=== PATIENT | male | born 1970 ===

== ENCOUNTER 2025-03-26 16:07 | Outpatient (AMB) | payer MEDICARE, MEDICAID, SELFPAY ==
--- NOTE | 2025-03-26 16:08 | AM.OFFWIN_ITS ---
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 Intake Note: Pt presents to the office today for c/o cough, congestion since yesterday. Pt also has left leg redness and pain since yesterday. Patient Tobacco Use Status: Former Tobacco user Allergies povidone-iodine [From Betadine] Allergy (Mild, Verified 03/26/25 16:14) Unknown HPI HPI Comments History of Present Illness Details History of Present Illness - The patient is a 54-year-old male pres enting with his caregiver who gives his history for left lower leg swelling and erythema. - Initial onset was yesterday after they removed his leg brace after horseback riding - His left lower leg was red and then it was worse today. - His left lower leg, ankle, and foot is swollen and red. - Patient has pain when it is touched. - He has no open abrasions. - He has no fever or chills. - He wears leg braces and is in a wheelc hair. Physical Exam General: Cooperative, healthy appearing, comfortable, no acute distress and well developed Respiratory: Normal respiratory effort and able to speak in complete sentences. Clear to auscultation bilaterally Cardiovascular: Regular rate and rhythm. Normal S1 and S2 Skin: Redness and swelling noted on the left leg, warm to touch Neuro: Sensation intact. Extremities: Swollen, warm, and erythematous left lower leg. TTP of the left lower leg and foot. Unable to assess his mobility as he is in a wheelchair. Patient was informed and verbally consented to the use of an ambient scribe for clinic note documentation during this visit. PFSH Social History Patient Tobacco Use Status: Former Tobacco user Review of Systems Const All systems reviewed & are unremarkable except as noted in HPI and below Physical Exam Vital Signs: Last Vital Signs Temp 97.7 F 03/26/25 16:10 Pulse 120 H 03/26/25 16:10 BP 140/82 H 03/26/25 16:10 Pulse Ox 99 03/26/25 16:10 Oxygen Delivery Method Room Air 03/26/25 16:10 Assessment & Plan Assessment & Plan (1) Left leg swelling: Code(s): M79.89 - Other specified soft tissue disorders Plan Most likely cellulitis vs DVT vs ostemyelitis Plan - Hospital evaluation for severe leg swelling, erythema, and warmth to rule out cellulitis or other infectious etiologies. - Consideration of intravenous antibiotics if indicated following assessment. - Ultrasound to be considered for evaluation of possible complications like deep vein thrombosis. - Immediate transport arrangements to hospital for thorough evaluation and management discussed, stressing urgency due to symptom severity. - Called the ER for an expect. Coding Level of Care Code New Pt Level 3 (60684) Diagnoses Left leg swelling M79.89
[2025-03-26 16:10] VITALS: BP 140/82; PULSE 120; TEMP 36.5; O2SAT 99
--- OUTSIDE RECORDS SUMMARY | 2025-03-26 18:29 | XMS_ITS | Patient Health Record ---
Author Organization [facility] Address [address] [place] [address] Care Team Providers Care Supervisor [employer] Name Role Phone Ra LUCIANO, David Primary Care Provider Joaquim Padron Unavailable [phone] Allergies Allergen (clinical drug ingredient) Drug/Non Drug Allergy documented on EMR Reaction Allergy Type Onset Date Status povidone-iodine Betadine Unknown Drug Allergy A ctive Iodine Unknown Drug Allergy Active Merthiolate Unknown Drug Allergy Activ e Reason For Referral No Information Medications Medication SIG (Take, Route, Frequency, Duration) Notes Start Date End Date Status Advil Active Robitussin Chest Congestion Active Extra-Depth Diabetic Shoes with 3 Pair Custom heat-molded multi-density innersoles . for 1 year . Dx: for . 05/01/2015 Activ e zzzCompression Stockings 20-30mm Hg .dx: intractable edema bilateral feet and legs . . for as needed 05/27/2014 Active Econazole Nitrate 1 % 1 application to affected area Externally Once a day for 30 days 09/03/2015 Active DDAVP Active Geritol Complete as directed Orally Active Tolnaftate 1 % as directed Externally Active Neurontin Active Ketoconazole 2 % 1 application to affected area Externally Once a day Active Nystatin Active Dilantin 100 MG 1 capsule Orally Twi ce a day for 30 day(s) Active tylenol Active Calcium Active Fosamax Active Debrox Active Problems Problem Type SNOMED Code ICD Code Onset Dates Problem Status W/U Status Risk Notes Problem Tinea unguium (129449171) Tinea unguium (B35.1) Active confirmed Plan Of Treatment Pending Test Test Name Order Date *Liver Function Test (LFT) 05/24/2013 [id number] NAIL, 6 OR MORE 05/24/2013 [id number] NAIL, 6 OR MORE 07/04/2013 [id number] NAIL, 6 OR MORE 08/30/2013 [id number] NAIL, 6 OR MORE 01/03/2014 [id number] NAIL, 6 OR MORE 05/27/2014 [id number] NAIL, 6 OR MORE 09/23/2014 [id number] NAIL, 6 OR MORE 01/23/2015 [id number] NAIL, 6 OR MORE 05/01/2015 [id number] NAIL, 6 OR MORE 09/03/2015 [id number] Plate 05/01/2015 [id number]-Dkswgxom Plate 01/23/2015 35642-Euhvsiws Plate 05/27/2014 26661- Debride <25 sq cm 01/03/2014 16842- Debride <25 sq cm 08/30/2013 79390- Debride <25 sq cm 05/24/2013 89370- Debride <25 sq cm 07/04/2013 Insurance Providers Payer Name Payer Address Payer Phone Subscriber Number Group Number Insured Name Patient Relationship to Insured Coverage Start Date Coverage End Date Medicare [facility] [address] [place] [phone] [id number] [place] Self - patient is the insured [facility] [address] [place] [address] [id number] Edy Ram Child - Insured has Financial Responsibility Medical (General) History Medical History History ICD Code epilepsy paralysis psoriasis/eczema Surgical History Surgery Date(Month/Year) brain surgery April 1979 shunt Hospitalization History Reason Date(Month/Year) [facility] ER, high fever 12/2013
== END 2025-03-26 16:40 | disposition home or self-care (01) ==
PROVIDERS: Visit Provider Physician Assistant Medical
DX: M79.89 Other specified soft tissue disorders (principal)

== ENCOUNTER → 2025-03-26 16:07 | Outpatient (BNVA) | payer MEDICARE, BC, MEDICAID, SELFPAY | PROVIDERS: Visit Provider Physician Assistant Medical | DX: R60.0 Localized edema (principal) | CPT/HCPCS: 99202 ==